=== PATIENT | female | born 1945 | race Caucasian/White ===

== ENCOUNTER 2016-08-14 14:28 | Outpatient (CLI) | payer MEDICARE, BC | END 2016-08-14 14:29 | disposition home or self-care (01) | DX: I48.91 Unspecified atrial fibrillation (principal) ==

== ENCOUNTER 2016-11-08 12:51 | Outpatient (CLI) | payer MEDICARE, BC | END 2016-11-08 12:52 | disposition home or self-care (01) | DX: I48.91 Unspecified atrial fibrillation (principal) ==

== ENCOUNTER 2016-11-19 15:13 | Outpatient (CLI) | payer MEDICARE, BC | END 2016-11-19 15:14 | disposition home or self-care (01) | DX: I48.91 Unspecified atrial fibrillation (principal) ==

== ENCOUNTER 2016-11-22 13:06 | Outpatient (CLI) | payer MEDICARE, BC | END 2016-11-22 13:07 | disposition home or self-care (01) | DX: I48.91 Unspecified atrial fibrillation (principal) ==

== ENCOUNTER 2017-04-18 12:53 | Outpatient (CLI) | payer MEDICARE, BC | END 2017-04-18 12:54 | disposition home or self-care (01) | LOC: LAB 12:53 | PROVIDERS: ATTEND Internal Medicine | DX: I48.91 Unspecified atrial fibrillation (principal) | CPT/HCPCS: 85610 ==

== ENCOUNTER 2017-05-02 13:05 | Outpatient (CLI) | payer MEDICARE, BC | END 2017-05-02 13:06 | disposition home or self-care (01) | LOC: LAB 13:05 | PROVIDERS: ATTEND Internal Medicine | DX: I48.91 Unspecified atrial fibrillation (principal) | CPT/HCPCS: 85610 ==

== ENCOUNTER 2017-06-05 11:47 | Outpatient (CLI) | payer MEDICARE, BC | END 2017-06-05 11:48 | disposition home or self-care (01) | LOC: LAB 11:47 | PROVIDERS: ATTEND Internal Medicine | DX: I48.91 Unspecified atrial fibrillation (principal) | CPT/HCPCS: 85610 ==

== ENCOUNTER 2017-07-30 14:14 | Outpatient (CLI) | payer MEDICARE, BC | END 2017-07-30 14:15 | disposition home or self-care (01) | LOC: LAB 14:14 | PROVIDERS: ATTEND Internal Medicine | DX: I48.91 Unspecified atrial fibrillation (principal) | CPT/HCPCS: 85610 ==

== ENCOUNTER 2017-10-03 15:05 | Outpatient (CLI) | payer MEDICARE, BC | END 2017-10-03 15:06 | disposition home or self-care (01) | LOC: LAB 15:05 | PROVIDERS: ATTEND Internal Medicine | DX: I48.91 Unspecified atrial fibrillation (principal) | CPT/HCPCS: 85610 ==

== ENCOUNTER 2017-11-14 14:50 | Outpatient (CLI) | payer MEDICARE, BC | END 2017-11-14 14:51 | disposition home or self-care (01) | LOC: LAB 14:50 | PROVIDERS: ATTEND Internal Medicine | DX: I48.91 Unspecified atrial fibrillation (principal) | CPT/HCPCS: 85610 ==

== ENCOUNTER 2018-01-07 13:41 | Outpatient (CLI) | payer MEDICARE, BC | END 2018-01-07 13:42 | disposition home or self-care (01) | LOC: LAB 13:41 | PROVIDERS: ATTEND Internal Medicine | DX: I48.91 Unspecified atrial fibrillation (principal) | CPT/HCPCS: 85610 ==

== ENCOUNTER 2018-04-09 15:14 | Outpatient (CLI) | payer MEDICARE, BC | END 2018-04-09 15:15 | disposition home or self-care (01) | LOC: LAB 15:14 | PROVIDERS: ATTEND Internal Medicine | DX: I48.91 Unspecified atrial fibrillation (principal) | CPT/HCPCS: 85610 ==

== ENCOUNTER 2018-05-19 13:42 | Outpatient (CLI) | payer MEDICARE, BC | END 2018-05-19 13:43 | disposition home or self-care (01) | LOC: LAB 13:42 | PROVIDERS: ATTEND Internal Medicine | DX: I48.91 Unspecified atrial fibrillation (principal) | CPT/HCPCS: 85610 ==

== ENCOUNTER 2018-09-10 14:40 | Outpatient (CLI) | payer MEDICARE, OTHER | END 2018-09-10 14:41 | disposition home or self-care (01) | LOC: LAB 14:40 | PROVIDERS: ATTEND Internal Medicine | DX: I48.91 Unspecified atrial fibrillation (principal) | CPT/HCPCS: 85610 ==

== ENCOUNTER 2018-11-13 14:53 | Outpatient (CLI) | payer MEDICARE | END 2018-11-13 14:54 | disposition home or self-care (01) | LOC: LAB 14:53 | PROVIDERS: ATTEND Internal Medicine | DX: I48.91 Unspecified atrial fibrillation (principal) | CPT/HCPCS: 85610 ==

== ENCOUNTER 2018-12-25 08:00 | Outpatient (CLI) | payer MEDICARE | END 2018-12-25 23:59 | disposition home or self-care (01) | LOC: LAB 08:00 | PROVIDERS: ATTEND Internal Medicine | DX: I48.1 Persistent atrial fibrillation (principal) | CPT/HCPCS: 85610 ==

== ENCOUNTER 2018-12-25 11:19 | Outpatient (CLI) | payer MEDICARE | END 2018-12-25 11:20 | disposition home or self-care (01) | LOC: LAB 11:19 | PROVIDERS: ATTEND Internal Medicine | DX: Z53.9 Procedure and treatment not carried out, unspecified reason (principal) ==